=== PATIENT | male | born 1965 | race Caucasian/White ===

== ENCOUNTER 2017-05-02 06:01 | Day surgery (SDC) | payer OTHER ==
[2017-04-28 12:56] VITALS: BMI 51.5
[2017-05-02] MEDS ORDERED: BUPIVACAINE HCL/EPINEPHRINE/PF 30 ML VIAL IJ ONE (07:06)
[2017-05-02] MEDS ORDERED: ceFAZolin SODIUM 1 GM VIAL ONE ×2 (07:09→07:15)
[2017-05-02] MEDS ORDERED: SUCCINYLCHOLINE CHLORIDE 200 MG/10 ML VIAL ONE ×2 (07:10)
[2017-05-02] MEDS ORDERED: MIDAZOLAM HCL 2 MG/2 ML SINGLE DOSE VIAL ONE (07:10)
[2017-05-02] MEDS ORDERED: PROPOFOL 20 ML ONE ×2 (07:10)
[2017-05-02] MEDS ORDERED: DEXAMETHASONE SOD PHOSPHATE 4 MG/1 ML VIAL ONE (07:16)
[2017-05-02] MEDS ORDERED: LIDOCAINE HCL/PF 2% SDV 5ML VIAL ONE (07:16)
[2017-05-02] MEDS ORDERED: KETOROLAC TROMETHAMINE 30 MG/1 ML VIAL ONE (07:16)
[2017-05-02] MEDS ORDERED: ONDANSETRON 4 MG/2 ML VIAL ONE ×2 (07:16→10:06)
[2017-05-02] MEDS ORDERED: LIDOCAINE HCL 2% JELLY (5 ML/TUBE) ONE (07:16)
[2017-05-02] MEDS ORDERED: ROCURONIUM BROMIDE 50 MG/5 ML VIAL ONE (07:49)
[2017-05-02] MEDS ORDERED: CEFAZOLIN 2 GM in DEXTROSE 5%-WATER - 100 ML IVPB ONE (07:50)
--- NOTE | 2017-05-02 07:50 | HP ---
History & Physical Update - History History: No Change - Physical Physical: No Change - Assessment Assessment: No Change - Plan Plan: No Change
[2017-05-02] MEDS ORDERED: BUPIVACAINE 0.25% /EPI 1:200,000 10 ML VIAL INF ONE (08:18)
[2017-05-02] MEDS ORDERED: TRANEXAMIC ACID 1000 MG/10 ML VIAL ONE (08:41)
[2017-05-02] MEDS ORDERED: NEOSTIGMINE METHYLSULFATE 0.5 MG/ML - 10 ML MDV ONE (09:07)
[2017-05-02] MEDS ORDERED: GLYCOPYRROLATE 0.2 MG/1 ML VIAL ONE (09:07)
[2017-05-02] MEDS ORDERED: oxyCODONE HCL 5 MG TABLET PO PRN ×2 (09:27→09:45)
--- NOTE | 2017-05-02 09:34 | DS ---
Physical Examination Vital Signs: Vital Signs Temperature 98.3 F 05/02/17 06:35 Pulse Rate 74 05/02/17 06:35 Respiratory Rate 16 05/02/17 06:35 Blood Pressure 137/95 05/02/17 06:35 O2 Sat by Pulse Oximetry (%) 96 05/02/17 06:41 Discharge Summary Reason For Visit: RIGHT BICEPS TENDON TEAR Condition: Good - Instructions Diet, Activity, Other Instructions: Post Operative Instructions: Elbow Surgery Dr Selvin Lopez 1. Pain following a elbow surgery is variable and can be significant. Some patients will have more pain than others. You have been provided with a prescription for medication that contains a narcotic. You are not allowed to drive while on this medication. You should NOT take Tylenol (Acetaminophen) when taking the pain medication ( it will result in an overdose). Feel free to take medications such as Ibuprofen or Naprosyn in addition to the pain medicine if you do not have any problems with the NSAID class of medications. 2. Apply ice to the elbow for 15 minutes every hour. You may continue this for as many days as necessary. 3. You may find sleeping on an incline (reclining chair) to be more comfortable for the first few days. 4. You must remain in your sling at all times except when showering. 5. You are not to use your arm to reach for anything, lift anything or carry anything until instructed otherwise. 6. You may shower but need to carefully place a bag and towel around top of the splint so it does not get wet. 7. Please call the office to schedule a visit to have your sutures removed. 8. If for any reason you believe you may have an infection or are concerned, please feel free to call me. I can be reached through our office number 24 hours a day. 9. Please call our office with any questions; we will review the surgical findings during your post-operative visit. Disposition: HOME - Home Medications Comprehensive Discharge Medication List: Ambulatory Orders NK [No Known Home Medication] 04/28/17
--- NOTE | 2017-05-02 09:34 | OP ---
Operative Note - Note: Operative Date: 05/02/17 Pre-Operative Diagnosis: Right distal biceps tear Operation: Right distal biceps repair Findings: distal biceps tear Post-Operative Diagnosis: Same as Pre-op Surgeon: Selvin Lopez Anesthesiologist/BANQUET BARTENDER: Shaw Hernández Anesthesia: General Operative Report Dictated: Yes
[2017-05-02] MEDS ORDERED: LACTATED RINGERS SOLUTION 1,000 ML IV SCH (09:45)
[2017-05-02] MEDS ORDERED: ONDANSETRON 4 MG/2 ML VIAL IVPUSH PRN (09:53)
[2017-05-02 10:02] VITALS: TEMP 98.1
[2017-05-02] MEDS ORDERED: oxyCODONE HCL 5 MG TABLET ONE (11:04)
[2017-05-02 11:40] VITALS: BP 134/84; PULSE 69
--- NOTE | 2017-05-02 13:57 | SURG ---
Surgery Rn Flight Note Rn Flight: Jah Kowalski PA-C Date of Service: 05/02/17 Diagnosis: Right distal biceps tear Procedure: Open right distal biceps repair I was present for the entirety of the operative procedure. For further detail, please refer to operative report. Visit type - Case Type Case Type: Scheduled Admission - New patient This patient is new to me today: Yes Date on this admission: 05/02/17
== END 2017-05-02 11:40 | disposition home or self-care (01) ==
LOC: FASU 06:01
PROVIDERS: ATTEND Orthopaedic Surgery
PROC: 0LM30ZZ Reattachment of Right Upper Arm Tendon, Open Approach (ICD-10-PCS; principal; 2017-05-02 07:30)
DX: S46.211A Strain of muscle, fascia and tendon of other parts of biceps, right arm, initial encounter (principal); X58.XXXA Exposure to other specified factors, initial encounter; Y93.9 Activity, unspecified; Y92.9 Unspecified place or not applicable
CPT/HCPCS: 94760